=== PATIENT | female | born 1985 | race Caucasian/White ===

== ENCOUNTER 2016-06-29 16:38 | Emergency (ER) | payer MEDICAID ==
[2016-06-29] MEDS ORDERED: ONDANSETRON 4 MG VIAL ONE (18:35)
[2016-06-29] MEDS ORDERED: DILAUDID 1 MG/ML AMP ONE ×3 (18:36→20:27)
[2016-06-29] MEDS ORDERED: KETOROLAC 30 MG/ML VIAL ONE (19:20)
== END 2016-06-29 20:43 | disposition home or self-care (01) ==
LOC: ER 16:38
DX: R10.31 Right lower quadrant pain (principal)
CPT/HCPCS: 36415; 74176; 80053; 81001; 83690; 84703; 85025; 87088; 96374; 96375; 96376